=== PATIENT | female | born 1995 | race Hispanic/Latino ===

== ENCOUNTER 2019-04-12 13:44 | Emergency (ER) | payer SELFPAY ==
[2019-04-12] MEDS ORDERED: Ondansetron ODT 4 MG TAB ONE (15:13)
[2019-04-12] MEDS ORDERED: Acetaminophen 500 MG TAB ONE (15:13)
== END 2019-04-12 15:19 | disposition home or self-care (01) ==
LOC: ERS 13:44
DX: T65.91XA Toxic effect of unspecified substance, accidental (unintentional), initial encounter (principal); Y92.69 Other specified industrial and construction area as the place of occurrence of the external cause; F17.210 Nicotine dependence, cigarettes, uncomplicated
CPT/HCPCS: 99283; Q0162